=== PATIENT | male | born 1965 | race Two or more races ===

== ENCOUNTER 2020-04-19 07:12 | Emergency (ER) | payer OTHER ==
[~2020-04-19] VITALS: Ht 165.1 cm; Wt 68.0 kg
[2020-04-19 07:23] VITALS: BP 129/74
--- NOTE | 2020-04-19 07:45 | NUR ---
COVID SWAB OBTAINED AND SENT TO LAB.
--- NOTE | 2020-04-19 07:50 | NUR ---
Patient discharged to home in stable condition. Written and verbal after care instructions given. Patient verbalizes understanding of instruction.
== END 2020-04-19 07:51 | disposition home or self-care (01) ==
LOC: ER 07:14
DX: J02.9 Acute pharyngitis, unspecified (principal); Z20.828 Contact with and (suspected) exposure to other viral communicable diseases
CPT/HCPCS: 99283; C9803; U0003